=== PATIENT | female | born 1985 | race Caucasian/White ===

== ENCOUNTER → 2023-03-11 | Outpatient (CLI) | payer OTHER | LOC: M RAD 11:32 | PROVIDERS: ATTEND Physician Assistant Medical | DX: R10.10 Upper abdominal pain, unspecified (principal); R19.7 Diarrhea, unspecified; R11.2 Nausea with vomiting, unspecified | CPT/HCPCS: 78227; A9537 ==

== ENCOUNTER 2023-04-05 10:19 | Day surgery (SDC) | payer OTHER ==
[~2023-04-05] VITALS: Ht 172.7 cm; Wt 134.5 kg
[~2023-04-05 10:19] MED LIST: ALLE180T33 PO; AMLO1TAB25 PO; HYDR-3490 PO; IBUP200C27 PO; LISI20TA33 PO; METH-1164 PO; NORE1TAB94 PO; NS 1,000 ML IV ONE; OMEP-173 PO
[2023-04-05 12:23] VITALS: TEMP 97.3
[2023-04-05 12:44] VITALS: BP 147/82; O2SAT 99
== END 2023-04-05 12:56 | disposition home or self-care (01) ==
LOC: M OPP 10:19 → EDUNIT# 11:00 → M OPP 12:56
PROVIDERS: ATTEND Internal Medicine Gastroenterology
DX: D12.5 Benign neoplasm of sigmoid colon (principal); R19.7 Diarrhea, unspecified; K31.89 Other diseases of stomach and duodenum; K22.70 Barrett's esophagus without dysplasia; K22.89 Other specified disease of esophagus; K44.9 Diaphragmatic hernia without obstruction or gangrene; Z79.1 Long term (current) use of non-steroidal anti-inflammatories (NSAID); Z79.899 Other long term (current) drug therapy